=== PATIENT | female | born 1945 | race African-American/Black ===

== ENCOUNTER 2017-10-11 11:19 | Outpatient (CLI) | payer MEDICARE ==
[2017-10-11 14:09] LABS: Hemoglobin 13.1 g/dL (12.0-16.0); Mean Corpuscular HGB CONC 32.4 g/dL (32.0-36.0); Mean Corpuscular Hemoglobin 29.9 pg (27.0-31.0); Mean Corpuscular Volume 92.3 fl (81.0-99.0); Mean Platelet Volume 8.2 fL (7.4-10.4); Platelet Count 194 thou/uL (130-400); RBC Distribution Width 13.1 % (11.5-14.5); Red Blood Cell (RBC) Count 4.39 mill/uL (4.20-5.40); White Blood Cell (WBC) Count 5.2 thou/uL (4.8-10.8)
[2017-10-11 14:16] LABS: INR-International Normal Ratio 1.2; Prothrombin Time 15.5 SEC (12.0-14.7)
[2017-10-11 14:31] LABS: Anion Gap 11 mmol/L (10-20); BUN (Urea Nitrogen) 17 mg/dL (9.8-20.1); Calc. Creatinine Clearance 0 mL/min (70-130); Calcium 9.4 mg/dL (7.8-10.44); Carbon Dioxide 28 mmol/L (23-31); Chloride 106 mmol/L (98-107); Estimated GFR-MDRD 76; Glucose 215 mg/dL (83-110); Potassium 4.4 mmol/L (3.5-5.1); Sodium 141 mmol/L (136-145)
--- NOTE | 2017-10-11 16:44 | EKG ---
Test Reason : Blood Pressure : / mmHG Vent. Rate : 051 BPM Atrial Rate : 051 BPM P-R Int : 164 ms QRS Dur : 074 ms QT Int : 416 ms P-R-T Axes : 056 047 015 degrees QTc Int : 383 ms Sinus bradycardia Otherwise normal ECG No previous ECGs available Confirmed by DR. Pam VALLE ([id number]) on 10/11/2017 4:43:42 PM Referred By: M[place] Confirmed By:DR. Pam VALLE
== END 2017-10-11 11:20 | disposition home or self-care (01) ==
LOC: LABBT 11:19
PROVIDERS: ATTEND Orthopaedic Surgery
DX: Z01.818 Encounter for other preprocedural examination (principal); M17.12 Unilateral primary osteoarthritis, left knee
CPT/HCPCS: 80048; 85027; 85610; 86850; 86900; 86901; 87081; 93005; 93010

== ENCOUNTER 2017-10-17 10:55 | Inpatient (IN) | payer MEDICARE, OTHER ==
[2017-10-11 11:35] VITALS: BMI 32.0
[2017-10-17] MEDS ORDERED: Bupivacaine/Epinephrine 0.25% 30 ML VIAL ONE (11:44)
[2017-10-17] MEDS ORDERED: Bupivacaine HCl 0.5%/Epinephrine 1:200,000/PF 30 ml Vial ONE ×2 (11:44→12:44)
[2017-10-17] MEDS ORDERED: Dexamethasone 20 MG/5 ML VIAL ONE (11:57)
[2017-10-17] MEDS ORDERED: Lidocaine 1% PF 5 ML VIAL ONE (11:57)
[2017-10-17] MEDS ORDERED: PROPOFOL 200 MG/20 ML VIAL ONE (11:57)
[2017-10-17] MEDS ORDERED: Midazolam HCl 2 mg/2 ml Vial ONE (12:13)
[2017-10-17] MEDS ORDERED: Fentanyl 100 MCG/2 ML VIAL ONE ×3 (12:13→15:46)
[2017-10-17] MEDS ORDERED: Neomycin-Polymyxin 1 ML AMP ONE (12:44)
[2017-10-17] MEDS ORDERED: CEFAZOLIN/Water 2 GM/20 ML SYRINGE ONE (12:57)
[2017-10-17] MEDS ORDERED: Fentanyl 100 MCG/2 ML VIAL IV PRN (12:59)
[2017-10-17] MEDS ORDERED: Ondansetron HCl/PF 4 MG/2 ML Vial IVP PRN ×2 (12:59→15:29)
[2017-10-17] MEDS ORDERED: Zolpidem Tartrate 5 MG TAB PO PRN ×2 (12:59→15:29)
[2017-10-17] MEDS ORDERED: traMADol HCl 50 MG TAB PO PRN ×3 (12:59→15:29)
[2017-10-17] MEDS ORDERED: Promethazine HCl 25 MG/ML VIAL IM PRN ×2 (12:59→15:29)
[2017-10-17] MEDS ORDERED: Acetaminophen 325 MG TAB PO PRN (15:29)
[2017-10-17] MEDS ORDERED: HYDROcodone/Acetaminophen 10/325 mg Tablet PO PRN (15:29)
[2017-10-17] MEDS ORDERED: diphenhydrAMINE 25 MG CAP PO PRN (15:29)
--- NOTE | 2017-10-17 16:29 | RAD ---
TWO VIEWS OF THE LEFT KNEE: COMPARISON: None. HISTORY: Postop left knee arthroplasty for osteoarthritis. FINDINGS: Two views left knee show the patient to status post left knee arthroplasty without perihardware lucen cy or fracture. Air in the soft tissues and overlying skin to are from recent surgery. A vascu lar stent is seen in the distal thigh. IMPRESSION: Status post left knee arthroplasty without evidence of complication. POS: [facility]
[2017-10-17] MEDS: HYDROcodone/Acetaminophen 7.5/325 mg Tablet PO PRN (19:45)
[2017-10-17] MEDS ORDERED: MISOPROSTOL PO SCH (21:00)
[2017-10-17] MEDS ORDERED: DICLOFENAC SODIUM PO SCH (21:00)
[2017-10-17] MEDS ORDERED: Dextrose 5% in Water 1,000 ML IV PRN (21:21)
[2017-10-17] MEDS ORDERED: Insulin Regular 300 UNITS/3 ML VIAL SC PRN ×2 (21:21)
[2017-10-17] MEDS ORDERED: hydrALAZINE 20 MG/ML VIAL SLOW IVP PRN (21:21)
[2017-10-17] MEDS ORDERED: Dextrose 50% Abboject 50 ML SYRINGE SLOW IVP PRN (21:21)
--- NOTE | 2017-10-17 21:58 | OP ---
DATE OF OPERATION: 10/17/2017 OPERATION: Left total knee arthroplasty. PREOPERATIVE DIAGNOSIS: Left knee osteoarthritis. POSTOPERATIVE DIAGNOSIS: Left knee osteoarthritis. COMPLICATIONS: None. ESTIMATED BLOOD LOSS: 200 mL. SURGEON: Ariel Mayer M.D. ELECTRONIC RESOURCES LIBRARIAN: Keyla Sullivan PA-C INDICATIONS: Ms. Patel is a 72-year-old female with advanced left knee arthritis. She has valgus alignment. She has been indicated for a total knee arthroplasty to restore function, relieve pain a nd correct alignment. Risks have been reviewed in detail. Risks include infection, nerve or vascula r injury, DVT, PE, bleeding, stiffness, and others. DESCRIPTION OF PROCEDURE: Ms. Patel was identified in the preoperative holding area. Her correct extremity was marked. She was carried to the operating room. She was positioned supine. General a nesthesia was induced. A multidisciplinary timeout was performed. The left lower extremity was prep ped and draped in sterile fashion. We began the procedure with an anterior approach to the knee. We dissected down through the subcutan eous tissues to the medial retinaculum, which was incised. We exposed the underlying knee joint. Os teophytes were removed. We performed a medial release. We performed a fat pad resection as well as suprapatellar decompression. At this point, we everted the patella. We resected 9-mm of patellar kody ne using an oscillating saw. We then drilled for a 38-mm patellar button. At this point, we placed our protection sleeve. We measured and the patellar height was reconstituted. Next, we flexed the k nee. We entered the intramedullary canal of the femur. We then placed our distal femoral cutting bl ock. An 11-mm of distal femoral bone was resected. We then placed our four-in-one cutting block wit h appropriate external rotation. We cut our anterior, posterior, and chamfer cuts appropriately foll owed by our box osteotomy. At this point, we moved to the tibia. The tibia was resected using an appropriate cutting block. We removed 2-mm from the lateral tibial plateau. At this point, we thoroughly irrigated with copious l avage. We debrided the posterior aspect of the knee. We removed meniscal remnants. Next, we triale d. A 10-mm poly was a good fit with range of motion and stability. We removed our trial components. We thoroughly irrigated once more. We then cemented in our final total knee arthroplasty implants. We held the knee in full extension until fully hardened. We then placed our final polyethylene com ponent. At this point, we thoroughly irrigated once more. We then closed the wounds. We found that our patellar tendon was partially injured of approximately 30% on the medial side. We repaired this with a #5 Ethibond suture. We then repaired the capsule with #2 Vicryl suture, 2-0 Vicryl suture an d to for the skin. A sterile dressing was applied. The patient was taken to the recovery room in good condition without complication. IMPLANTS: A DePuy Sigma total knee arthroplasty, size 4 narrow femur, size 4 tibia, size 10 polyethy ronaldo and 38-mm oval dome patella.
[2017-10-17] MEDS: Furosemide 80 MG TAB PO SCH (22:09)
[2017-10-17] MEDS: Misoprostol 200 MCG TAB PO SCH (22:09)
[2017-10-17] MEDS: Gabapentin 300 MG CAP PO SCH (22:09)
[2017-10-17] MEDS: CEFAZOLIN/Water 2 GM/20 ML SYRINGE SLOW IVP SCH (22:10)
[2017-10-17] MEDS: Potassium Chloride 20 MEQ TAB PO SCH (22:16)
[2017-10-17] MEDS: Ketorolac Tromethamine 30 MG/ML VIAL IVP SCH (22:19)
[2017-10-17] MEDS: TROSPIUM 20 MG TABLET PO SCH (23:11)
--- NOTE | 2017-10-17 23:38 | CON ---
DATE OF CONSULTATION: 10/18/2017 PRIMARY CARE PHYSICIAN: Dr. Rikki Huerta. ATTENDING PHYSICIAN: Dr. Mayer. PRIMARY BURRITO MAKER: Dr. Gan. REASON FOR CONSULTATION: Medical management. HISTORY OF PRESENT ILLNESS: Patient is a 72-year-old female with hypertension, diabetes mellitus typ e 2, coronary artery disease, and peripheral vascular disease underwent left total knee arthroplasty. Hospitalist team was consulted for medical management. Patient has a long history of diabetes mellitus type 2 and is currently on empagliflozin. She is cur rently not on any insulin. She also has history of coronary artery disease. In June of this year , she underwent cardiac catheterization that showed 20%-30% stenosis in the left main 40%-50% stenosi s in the LAD and some disease in the RCA. She is currently medically managed. At the same time, she had stent placement to the left superficial femoral artery. She also has history of tobacco abuse, hypertension, and hyperlipidemia. At this time, she denies any chest pain, shortness of breath, palp itations, lightheadedness, dizziness, nausea, or vomiting. PAST MEDICAL HISTORY: 1. Coronary artery disease as discussed above. 2. Peripheral vascular disease with recent stent placement currently on aspirin and Plavix. 3. Diabetes mellitus, type 2. 4. Gastroesophageal reflux disease. 5. Hypertension. 6. Hyperlipidemia. 7. Chronic low back pain. 8. Degenerative joint disease. 9. Obesity with a BMI 32. 10. Urinary incontinence. PAST SURGICAL HISTORY: 1. . 2. Hysterectomy. 3. Foot surgery. 4. Cardiac catheterization in 1997 and in June of this year. ALLERGIES: Patient is allergic to STATINS. CURRENT HOME MEDICATIONS: Patient is currently on aspirin, Plavix, Arthrotec, digoxin, Cardizem exte nded-release, Jardiance, Lasix, gabapentin, misoprostol, multivitamin, fish oil, Protonix, potassium chloride with CK and Diovan. SOCIAL HISTORY: Patient currently lives at home with her family, makes her own decisions. She is [facility]. She has history of tobacco dependence. No significant use of alcohol. FAMILY HISTORY: Negative for premature coronary artery disease. REVIEW OF SYSTEMS: The following complete review of systems was negative, unless otherwise mentioned in the HPI or below: Constitutional: Weight loss or gain, ability to conduct usual activities. Sk in: Rash, itching. Eyes: Double vision, pain. ENT/Mouth: Nose bleeding, neck stiffness, pain, te nderness. Cardiovascular: Palpitations, dyspnea on exertion, orthopnea. Respiratory: Shortness of breath, wheezing, cough, hemoptysis, fever, or night sweats. Gastrointestinal: Poor appetite, abdo kris pain, heartburn, nausea, vomiting, constipation, or diarrhea. Genitourinary: Urgency, frequen cy, dysuria, nocturia. Musculoskeletal: Pain, swelling. Neurologic/Psychiatric: Anxiety, depressi on. Allergy/Immunologic: Skin rash, bleeding tendency. PHYSICAL EXAMINATION: VITAL SIGNS: Temperature 97.2, pulse rate of 61, respirations of 18, blood pressure 150/68 with O2 s aturation 95% on room air. GENERAL: A 72-year-old female in no significant distress. Pain controlled at this time. HEENT: Atraumatic, normocephalic. Sclerae anicteric. Moist mucous membranes. No oral lesion. NECK: Supple, no JVD appreciated. No carotid bruit. LUNGS: Clear to auscultation bilaterally. No wheezing, rales, or rhonchi. HEART: S1, S2 present. Regular rate and rhythm, bradycardic. No significant rubs or gallops apprec iated. ABDOMEN: Soft, nontender, bowel sounds present. No rebound or guarding. EXTREMITIES: No significant edema or calf tenderness. Dressing noted over the left knee. NEUROLOGIC: Grossly nonfocal, moves all four extremities. PSYCHIATRY: Alert, awake, oriented x3. Normal affect. SKIN: Warm and dry. LYMPH NODES: No palpable lymph nodes in the neck. PERIPHERAL VASCULAR: Radial pulses palpable bilaterally. MUSCULOSKELETAL: No joint swelling or tenderness. LABORATORY FINDINGS: CBC last week showed WBC 5.2 with hemoglobin 13.1, hematocrit 40.5, platelet 19 4. Chemistries showed sodium 141, potassium 4.4, chloride 106, bicarbonate 28, BUN 17, creatinine 0. 89 with glucose of 215. X-ray of the knee by my review showed left total knee arthroplasty. EKG by my review showed sinus br adycardia without significant ST-T wave changes. IMPRESSION: 1. Coronary artery disease on medical management. Antiplatelets will be continued. We will continu e valsartan and Lasix. She had a normal ejection fraction on the cardiac catheterization earlier thi s year. She denies any chest pain, palpitations at this time. 2. Peripheral vascular disease with recent stent placement to the left superficial femoral artery. We will continue aspirin and Plavix. We will avoid compression device. Patient denies any claudicat ion at this time. 3. Hypertension. We will continue her current home antihypertensives. We will add holding paramete rs to valsartan. 4. Sinus bradycardia. Patient is asymptomatic at this time. Her heart rate was in 50s on the EKG. She is currently on digoxin. She is unable to recall if she has any history of atrial fibrillation. Her ejection fraction on the cardiac catheterization was around 65%. 5. Hyperlipidemia. Patient is allergic to STATINS. 6. Obesity with a BMI 32.0. Lifestyle modification emphasized. 7. Tobacco dependence. Patient was counseled. 8. Chronic kidney disease, stage 2. 9. Degenerative joint disease. This patient is currently on diclofenac with the misoprostol. We wi ll also continue proton pump inhibitors. 10. Urinary incontinence. We will continue VESIcare. Thank you Dr. Mayer for this consultation. We will follow with you.
[2017-10-18] MEDS: Bupivacaine 0.5% 50 ML in Sodium Chloride 0.9% 50 ML NERVE BLCK SCH ×2 (04:47→17:36)
[2017-10-18] MEDS: Ketorolac Tromethamine 30 MG/ML VIAL IVP SCH ×3 (04:47→22:19)
[2017-10-18] MEDS: CEFAZOLIN/Water 2 GM/20 ML SYRINGE SLOW IVP SCH (04:48)
[2017-10-18 05:17] LABS: Hemoglobin 10.6 g/dL (12.0-16.0); Mean Corpuscular HGB CONC 32.9 g/dL (32.0-36.0); Mean Corpuscular Hemoglobin 29.9 pg (27.0-31.0); Mean Corpuscular Volume 91.1 fl (81.0-99.0); Platelet Count 182 thou/uL (130-400); RBC Distribution Width 12.9 % (11.5-14.5); Red Blood Cell (RBC) Count 3.54 mill/uL (4.20-5.40)
[2017-10-18] MEDS ORDERED: Eucerin (Mineral Oil/Petrolatum,White) 30 gm Jar TOP PRN (07:20)
[2017-10-18] MEDS ORDERED: Loperamide HCl 2 MG CAP PO PRN (07:20)
[2017-10-18] MEDS ORDERED: Artificial Tears 18 DROP/0.9 ML EA EYE PRN (07:20)
[2017-10-18] MEDS ORDERED: Diabetic Tussin 200 MG/10 ML UDCUP PO PRN (07:20)
[2017-10-18] MEDS ORDERED: Chloraseptic Spray 180 ml Bottle PO PRN (07:20)
[2017-10-18] MEDS ORDERED: Mag-Al 1200 mg/1200 mg/30 ML UDCUP PO PRN (07:20)
[2017-10-18] MEDS ORDERED: Bisacodyl 10 MG SUPP PR PRN (07:20)
[2017-10-18] MEDS ORDERED: Milk Of Magnesia 30 ML UDCUP PO PRN (07:20)
[2017-10-18] MEDS: Pioglitazone HCl 45 MG TAB PO SCH (08:18)
[2017-10-18] MEDS: Senokot S 8.6-50 MG TAB PO SCH ×2 (08:18→20:30)
[2017-10-18] MEDS: Gabapentin 300 MG CAP PO SCH ×2 (08:18→20:30)
[2017-10-18] MEDS: Valsartan 80 MG TAB PO SCH (08:19)
[2017-10-18] MEDS: Digoxin 0.125 MG TAB PO SCH (08:20)
[2017-10-18] MEDS: Misoprostol 200 MCG TAB PO SCH ×4 (08:21→20:43)
[2017-10-18] MEDS: Clopidogrel Bisulfate 75 MG TAB PO SCH (08:21)
[2017-10-18] MEDS: Ferrous Gluconate 324 MG TAB PO SCH ×2 (08:21→20:32)
[2017-10-18] MEDS: Multivitamin W/ Minerals 1 TAB PO SCH (08:21)
[2017-10-18] MEDS: Aspirin 81 mg Enteric Coated Tablet PO SCH (08:21)
[2017-10-18] MEDS: Fish Oil 1,000 MG CAP PO SCH (08:21)
[2017-10-18] MEDS: Furosemide 80 MG TAB PO SCH ×2 (08:21→20:31)
[2017-10-18] MEDS: Potassium Chloride 20 MEQ TAB PO SCH ×2 (08:30→20:30)
[2017-10-18] MEDS: TROSPIUM 20 MG TABLET PO SCH ×2 (08:30→20:44)
[2017-10-18] MEDS ORDERED: Valsartan 80 MG TAB PO SCH (09:00)
[2017-10-18] MEDS ORDERED: Empagliflozin [Jardiance] 10 MG PO SCH (09:00)
--- NOTE | 2017-10-18 09:27 | PDOC.PN ---
- Subjective Encounter Start Date: 10/18/17 Encounter Start Time: 07:40 -: old records requested/rev Patient seen and examined for HTN, CAD. No new complaints. No overnight events - Objective MAR Reviewed: Yes Vital Signs & Weight: Vital Signs (12 hours) Temp Pulse Resp BP Pulse Ox 10/18/17 08:37 98.0 F 63 15 136/56 L 97 10/18/17 08:20 68 10/18/17 03:03 98.2 F 69 18 129/68 98 10/18/17 00:14 97.7 F 77 18 151/78 H 96 10/17/17 22:21 67 156/67 H Weight Weight 223 lb I&O: 10/17/17 10/18/17 10/19/17 06:59 06:59 06:59 Intake Total 200 Output Total 700 Balance -500 Result Diagrams: 10/18/17 03:09 Additional Labs: Accuchecks 10/18/17 05:56 POC Glucose 207 H Phys Exam - Physical Examination Constitutional: NAD HEENT: PERRLA, moist MMs, sclera anicteric Neck: no JVD, supple Respiratory: no wheezing, no rales, no rhonchi Cardiovascular: RRR, no significant murmur, no rub Gastrointestinal: soft, non-tender, no distention, positive bowel sounds Musculoskeletal: no edema, pulses present left knee with brace, nerve block in place Neurological: non-focal, normal sensation, moves all 4 limbs Lymphatic: no nodes Psychiatric: normal affect, A&O x 3 Skin: no rash, normal turgor Dx/Plan (1) Status post total left knee replacement Code(s): Z96.652 - PRESENCE OF LEFT ARTIFICIAL KNEE JOINT Status: Acute (2) CAD (coronary artery disease) Code(s): I25.10 - ATHSCL HEART DISEASE OF [place] CORONARY ARTERY W/O ANG PCTRS Status: Chronic (3) CKD (chronic kidney disease) stage 2, GFR 60-89 ml/min Code(s): N18.2 - CHRONIC KIDNEY DISEASE, STAGE 2 (MILD) Status: Chronic (4) DJD (degenerative joint disease) Code(s): M19.90 - UNSPECIFIED OSTEOARTHRITIS, UNSPECIFIED SITE Status: Chronic (5) Diabetes type 2, controlled Code(s): E11.9 - TYPE 2 DIABETES MELLITUS WITHOUT COMPLICATIONS Status: Chronic (6) Dyslipidemia Code(s): E78.5 - HYPERLIPIDEMIA, UNSPECIFIED Status: Chronic (7) GERD (gastroesophageal reflux disease) Code(s): K21.9 - GASTRO-ESOPHAGEAL REFLUX DISEASE WITHOUT ESOPHAGITIS Status: Chronic (8) Hypertension Code(s): I10 - ESSENTIAL (PRIMARY) HYPERTENSION Status: Chronic (9) Obesity (BMI 30.0-34.9) Code(s): E66.9 - OBESITY, UNSPECIFIED Status: Chronic (10) PVD (peripheral vascular disease) Code(s): I73.9 - PERIPHERAL VASCULAR DISEASE, UNSPECIFIED Status: Chronic (11) Tobacco abuse Code(s): Z72.0 - TOBACCO USE Status: Chronic - Plan cont current plan of care, PT/OT, rn social services, DVT proph w/SCDs * pt is on aspirin and plavic for DVT prophylaxis as per [facility] protocol * continue PT/OT as per [facility] protocol * pain control with pain meds as below * nerve block as per anesthesia * she may need placement to rehab * code status- full code, does not have designated MPOA * medication reviewed as below * symptomatic treatment * continue protonix for GI prophylaxis. Review of Systems - Review of Systems Constitutional: negative: fever, chills, sweats, weakness, malaise, other Eyes: negative: Pain, Vision Change, Conjunctivae Inflammation, Eyelid Inflammation, Redness, Other ENT: negative: Ear Pain, Ear Discharge, Nose Pain, Nose Discharge, Nose Congestion, Mouth Pain, Mouth Swelling, Throat Pain, Throat Swelling, Other Respiratory: negative: Cough, Dry, Shortness of Breath, Hemoptysis, SOB with Excertion, Pleuritic Pain, Sputum, Wheezing Cardiovascular: negative: chest pain, palpitations, orthopnea, paroxysmal nocturnal dyspnea, edema, light headedness, other Gastrointestinal: negative: Nausea, Vomiting, Abdominal Pain, Diarrhea, Constipation, Melena, Hematochezia, Other Genitourinary: negative: Dysuria, Frequency, Incontinence, Hematuria, Retention , Other Musculoskeletal: Leg Pain. negative: Neck Pain, Shoulder Pain, Arm Pain, Back Pain, Hand Pain, Foot Pain, Other - Medications/Allergies Allergies/Adverse Reactions: Allergies Allergy/AdvReac Type Severity Reaction Status Date / Time Jfmhxge-Hkx-Vky Reductase Allergy Verified 10/17/17 19:38 Inhibitor Medications: Current Medications Acetaminophen (Tylenol) 650 mg PO Q4H PRN PRN Reason: GIMENEZ/ T > 101F; Mild Pain (1-3) Hydrocodone Bitart/Acetaminophen ([place] 7.5/325) 1 tab PO Q4H PRN PRN Reason: Mild Pain (1-3) Hydrocodone Bitart/Acetaminophen ([place] 7.5/325) 2 tab PO Q4H PRN PRN Reason: Moderate Pain (4-6) Last Admin: 10/17/17 19:45 Dose: 2 tab Al Hydroxide/Mg Hydroxide (Maalox) 15 ml PO Q4H PRN PRN Reason: Heartburn or Indigestion Artificial Tears (Tears Naturale) 0 drop EA EYE PRN PRN PRN Reason: Dry Eyes Aspirin (Ecotrin) 81 mg PO DAILY [facility] Last Admin: 10/18/17 08:21 Dose: 81 mg Bisacodyl (Dulcolax) 10 mg MI DAILYPRN PRN PRN Reason: Constipation Clopidogrel Bisulfate (Plavix) 75 mg PO DAILY [facility] Last Admin: 10/18/17 08:21 Dose: 75 mg Dextrose/Water (Dextrose 50%) 25 gm SLOW IVP PRN PRN PRN Reason: Hypoglycemia Diclofenac Sodium (Voltaren) 75 mg PO BID [facility] Last Admin: 10/18/17 08:19 Dose: 75 mg Digoxin (Lanoxin) 0.125 mg PO DAILY [facility] Last Admin: 10/18/17 08:20 Dose: 0.125 mg Diltiazem HCl (Cardizem Cd) 180 mg PO DAILY [facility] Last Admin: 10/18/17 08:20 Dose: 180 mg Diphenhydramine HCl (Benadryl) 25 mg PO Q6H PRN PRN Reason: Itching Fentanyl (Sublimaze) 50 mcg IV Q1H PRN PRN Reason: BREAKTHROUGH PAIN Ferrous Gluconate (Fergon) 324 mg PO BID [facility] Last Admin: 10/18/17 08:21 Dose: 324 mg Fish Oil (Fish Oil) 1,000 mg PO DAILY [facility] Last Admin: 10/18/17 08:21 Dose: 1,000 mg Furosemide (Lasix) 80 mg PO BID [facility] Last Admin: 10/18/17 08:21 Dose: 80 mg Gabapentin (Neurontin) 300 mg PO BID [facility] Last Admin: 10/18/17 08:18 Dose: 300 mg Glucagon (Glucagon) 1 mg IM PRN PRN PRN Reason: Hypoglycemia Guaifenesin (Robitussin Sf) 200 mg PO Q4H PRN PRN Reason: Cough Hydralazine HCl (Apresoline) 10 mg SLOW IVP Q4H PRN PRN Reason: SBP Greater Than 180 Bupivacaine HCl 50 ml/ Sodium (Chloride) 100 mls @ 0 mls/hr NERVE BLCK INF LOBO PRN Reason: As Directed Last Admin: 10/18/17 04:47 Dose: 100 mls Dextrose/Water (D5w) 1,000 mls @ 0 mls/hr IV .Q0M PRN; As Directed PRN Reason: Hypoglycemia Insulin Human Regular (Humulin R) 0 units SC .MILD SLIDING SCALE PRN PRN Reason: Mild Correctional Scale Insulin Human Regular (Humulin R) 0 units SC .BEDTIME SLIDING SC PRN PRN Reason: Bedtime Correction[place] Scale Iron/Minerals/Multivitamins (Theragran M) 1 tab PO DAILY [facility] Last Admin: 10/18/17 08:21 Dose: 1 tab Ketorolac Tromethamine (Toradol) 15 mg IVP Q8HR [facility] Stop: 10/19/17 22:01 Last Admin: 10/18/17 04:47 Dose: 15 mg Loperamide HCl (Imodium) 2 mg PO PRN PRN PRN Reason: Diarrhea/Loose Stools Magnesium Hydroxide (Milk Of Magnesium) 30 ml PO DAILYPRN PRN PRN Reason: Constipation Mineral Oil/White Petrolatum (Eucerin Cream) 0 gm TOP BIDPRN PRN PRN Reason: Dry Skin Misoprostol (Cytotec) 200 mcg PO DAILY [facility] Last Admin: 10/18/17 08:21 Dose: 200 mcg Misoprostol (Cytotec) 200 mcg PO BID [facility] Last Admin: 10/17/17 22:09 Dose: 200 mcg Multivitamins (Theragran) 1 tab PO DAILY [facility] Ondansetron HCl (Zofran) 4 mg IVP Q6H PRN PRN Reason: Nausea/Vomiting Pantoprazole Sodium (Protonix) 40 mg PO DAILY [facility] Last Admin: 10/18/17 08:21 Dose: 40 mg Empagliflozin [ (Jardiance] 10 Mg) 0 each PO DAILY [facility] Phenol (Chloraseptic [place] 180 Ml Bot) 0 ml PO PRN PRN PRN Reason: Sore Throat Pioglitazone HCl (Actos) 45 mg PO DAILY [facility] Last Admin: 10/18/17 08:18 Dose: 45 mg Potassium Chloride (K-Dur) 20 meq PO BID [facility] Last Admin: 10/17/17 22:16 Dose: 20 meq Promethazine HCl (Phenergan) 12.5 mg IM Q4H PRN PRN Reason: Nausea/Vomiting Senna/Docusate Sodium (Senokot S) 2 tab PO BID [facility] Last Admin: 10/18/17 08:18 Dose: 2 tab Sodium Chloride (Flush - Normal Saline) 10 ml IVF PRN PRN PRN Reason: Saline Flush Tramadol HCl (Ultram) 50 mg PO Q6H PRN PRN Reason: Mild Pain (1-3) Tramadol HCl (Ultram) 100 mg PO Q6H PRN PRN Reason: Moderate Pain 4-6 Trospium (Trospium) 20 mg PO BID [facility] Last Admin: 10/17/17 23:11 Dose: Not Given Valsartan (Diovan) 320 mg PO DAILY [facility] Last Admin: 10/18/17 08:19 Dose: 320 mg Zolpidem Tartrate (Ambien) 5 mg PO HSPRN PRN PRN Reason: Insomnia
[2017-10-18] MEDS: Multivit, Therapeutic 1 TAB PO SCH (11:27)
[2017-10-18] MEDS ORDERED: Insulin Regular 300 UNITS/3 ML VIAL SC PRN (11:58)
[2017-10-18] MEDS: HYDROcodone/Acetaminophen 7.5/325 mg Tablet PO PRN ×2 (17:43→19:41)
[2017-10-18] MEDS: Insulin Regular 300 UNITS/3 ML VIAL SC PRN (22:29)
[2017-10-19] MEDS: Ketorolac Tromethamine 30 MG/ML VIAL IVP SCH ×3 (05:09→20:55)
[2017-10-19 05:52] LABS: Hemoglobin 9.7 g/dL (12.0-16.0); Mean Corpuscular HGB CONC 32.6 g/dL (32.0-36.0); Mean Corpuscular Hemoglobin 29.9 pg (27.0-31.0); Mean Corpuscular Volume 91.7 fl (81.0-99.0); Mean Platelet Volume 7.8 fL (7.4-10.4); Platelet Count 155 thou/uL (130-400); RBC Distribution Width 12.9 % (11.5-14.5); Red Blood Cell (RBC) Count 3.24 mill/uL (4.20-5.40)
[2017-10-19] MEDS: Bupivacaine 0.5% 50 ML in Sodium Chloride 0.9% 50 ML NERVE BLCK SCH ×2 (07:09→20:25)
[2017-10-19] MEDS: Valsartan 80 MG TAB PO SCH (08:23)
[2017-10-19] MEDS: Pioglitazone HCl 45 MG TAB PO SCH (08:24)
[2017-10-19] MEDS: Aspirin 81 mg Enteric Coated Tablet PO SCH (08:25)
[2017-10-19] MEDS: Fish Oil 1,000 MG CAP PO SCH (08:25)
[2017-10-19] MEDS: Potassium Chloride 20 MEQ TAB PO SCH ×2 (08:25→20:49)
[2017-10-19] MEDS: Gabapentin 300 MG CAP PO SCH ×2 (08:25→20:48)
[2017-10-19] MEDS: Ferrous Gluconate 324 MG TAB PO SCH ×2 (08:25→20:48)
[2017-10-19] MEDS: Clopidogrel Bisulfate 75 MG TAB PO SCH (08:25)
[2017-10-19] MEDS: Senokot S 8.6-50 MG TAB PO SCH ×2 (08:25→20:49)
[2017-10-19] MEDS: Furosemide 80 MG TAB PO SCH ×2 (08:25→21:12)
[2017-10-19] MEDS: Multivitamin W/ Minerals 1 TAB PO SCH (08:26)
[2017-10-19] MEDS: Digoxin 0.125 MG TAB PO SCH (08:26)
[2017-10-19] MEDS: Misoprostol 200 MCG TAB PO SCH ×4 (08:26→21:12)
--- NOTE | 2017-10-19 10:09 | PDOC.PN ---
- Subjective Encounter Start Date: 10/19/17 Encounter Start Time: 08:00 Patient seen and examined for medical management. No new complaints. No overnight events - Objective Resuscitation Status: Resuscitation Status FULL:Full Resuscitation MAR Reviewed: Yes Vital Signs & Weight: Vital Signs (12 hours) Temp Pulse Resp BP BP Pulse Ox 10/19/17 08:26 55 L 10/19/17 08:07 97.5 F L 58 L 14 118/86 97 10/19/17 03:08 98.3 F 62 18 134/56 L 97 10/19/17 00:00 98.5 F 68 14 95/52 L 96 Weight Admit Weight 223 lb Weight 223 lb I&O: 10/18/17 10/19/17 10/20/17 06:59 06:59 06:59 Intake Total 200 Output Total 700 2000 Result Diagrams: 10/19/17 05:37 Additional Labs: Accuchecks 10/19/17 10/18/17 10/18/17 05:41 22:20 15:46 POC Glucose 173 H 300 H 164 H 10/18/17 11:14 POC Glucose 371 H Phys Exam - Physical Examination Constitutional: NAD HEENT: PERRLA, moist MMs, sclera anicteric Neck: no JVD, supple Respiratory: no wheezing, no rales, no rhonchi Cardiovascular: RRR, no significant murmur, no rub Gastrointestinal: soft, non-tender, no distention, positive bowel sounds Musculoskeletal: no edema, pulses present left knee surgical site clean Neurological: non-focal, normal sensation, moves all 4 limbs Psychiatric: normal affect, A&O x 3 Skin: no rash, normal turgor Dx/Plan (1) Status post total left knee replacement Code(s): Z96.652 - PRESENCE OF LEFT ARTIFICIAL KNEE JOINT Status: Acute (2) CAD (coronary artery disease) Code(s): I25.10 - ATHSCL HEART DISEASE OF [place] CORONARY ARTERY W/O ANG PCTRS Status: Chronic (3) CKD (chronic kidney disease) stage 2, GFR 60-89 ml/min Code(s): N18.2 - CHRONIC KIDNEY DISEASE, STAGE 2 (MILD) Status: Chronic (4) DJD (degenerative joint disease) Code(s): M19.90 - UNSPECIFIED OSTEOARTHRITIS, UNSPECIFIED SITE Status: Chronic (5) Diabetes type 2, controlled Code(s): E11.9 - TYPE 2 DIABETES MELLITUS WITHOUT COMPLICATIONS Status: Chronic (6) Dyslipidemia Code(s): E78.5 - HYPERLIPIDEMIA, UNSPECIFIED Status: Chronic (7) GERD (gastroesophageal reflux disease) Code(s): K21.9 - GASTRO-ESOPHAGEAL REFLUX DISEASE WITHOUT ESOPHAGITIS Status: Chronic (8) Hypertension Code(s): I10 - ESSENTIAL (PRIMARY) HYPERTENSION Status: Chronic (9) Obesity (BMI 30.0-34.9) Code(s): E66.9 - OBESITY, UNSPECIFIED Status: Chronic (10) PVD (peripheral vascular disease) Code(s): I73.9 - PERIPHERAL VASCULAR DISEASE, UNSPECIFIED Status: Chronic (11) Tobacco abuse Code(s): Z72.0 - TOBACCO USE Status: Chronic - Plan cont current plan of care, PT/OT, social worker psychiatric * pt is on aspirin and plavic for DVT prophylaxis as per JU protocol * continue PT/OT as per JU protocol * pain control with pain meds as below * nerve block as per anesthesia * she may need placement to rehab * medication reviewed as below * symptomatic treatment * continue protonix for GI prophylaxis. * pt's blood sugar was high as she was not able to take her home medication, today will resume her diabetic medication Review of Systems - Review of Systems Eyes: negative: Pain, Vision Change, Conjunctivae Inflammation, Eyelid Inflammation, Redness, Other ENT: negative: Ear Pain, Ear Discharge, Nose Pain, Nose Discharge, Nose Congestion, Mouth Pain, Mouth Swelling, Throat Pain, Throat Swelling, Other Respiratory: negative: Cough, Dry, Shortness of Breath, Hemoptysis, SOB with Excertion, Pleuritic Pain, Sputum, Wheezing Cardiovascular: negative: chest pain, palpitations, orthopnea, paroxysmal nocturnal dyspnea, edema, light headedness, other Gastrointestinal: negative: Nausea, Vomiting, Abdominal Pain, Diarrhea, Constipation, Melena, Hematochezia, Other Genitourinary: negative: Dysuria, Frequency, Incontinence, Hematuria, Retention , Other Musculoskeletal: negative: Neck Pain, Shoulder Pain, Arm Pain, Back Pain, Hand Pain, Leg Pain, Foot Pain, Other Skin: negative: Rash, Lesions, Miguel Angel, Bruising, Other - Medications/Allergies Allergies/Adverse Reactions: Allergies Allergy/AdvReac Type Severity Reaction Status Date / Time [id number]-[id number]-[id number] Reductase Allergy Verified 10/17/17 19:38 Inhibitor Medications: Current Medications Acetaminophen (Tylenol) 650 mg PO Q4H PRN PRN Reason: GIMENEZ/ T > 101F; Mild Pain (1-3) Hydrocodone Bitart/Acetaminophen ([place] 7.5/325) 1 tab PO Q4H PRN PRN Reason: Mild Pain (1-3) Last Admin: 10/18/17 17:43 Dose: 1 tab Hydrocodone Bitart/Acetaminophen ([place] 7.5/325) 2 tab PO Q4H PRN PRN Reason: Moderate Pain (4-6) Last Admin: 10/18/17 19:41 Dose: 2 tab Al Hydroxide/Mg Hydroxide (Maalox) 15 ml PO Q4H PRN PRN Reason: Heartburn or Indigestion Artificial Tears (Tears Naturale) 0 drop EA EYE PRN PRN PRN Reason: Dry Eyes Aspirin (Ecotrin) 81 mg PO DAILY [facility] Last Admin: 10/19/17 08:25 Dose: 81 mg Bisacodyl (Dulcolax) 10 mg [place] DAILYPRN PRN PRN Reason: Constipation Clopidogrel Bisulfate (Plavix) 75 mg PO DAILY [facility] Last Admin: 10/19/17 08:25 Dose: 75 mg Dextrose/Water (Dextrose 50%) 25 gm SLOW IVP PRN PRN PRN Reason: Hypoglycemia Diclofenac Sodium (Voltaren) 75 mg PO BID [facility] Last Admin: 10/19/17 08:24 Dose: 75 mg Digoxin (Lanoxin) 0.125 mg PO DAILY [facility] Last Admin: 10/19/17 08:26 Dose: Not Given Diltiazem HCl (Cardizem Cd) 180 mg PO DAILY [facility] Last Admin: 10/19/17 08:23 Dose: 180 mg Diphenhydramine HCl (Benadryl) 25 mg PO Q6H PRN PRN Reason: Itching Fentanyl (Sublimaze) 50 mcg IV Q1H PRN PRN Reason: BREAKTHROUGH PAIN Ferrous Gluconate (Fergon) 324 mg PO BID [facility] Last Admin: 10/19/17 08:25 Dose: 324 mg Fish Oil (Fish Oil) 1,000 mg PO DAILY [facility] Last Admin: 10/19/17 08:25 Dose: 1,000 mg Furosemide (Lasix) 80 mg PO BID [facility] Last Admin: 10/19/17 08:25 Dose: 80 mg Gabapentin (Neurontin) 300 mg PO BID [facility] Last Admin: 10/19/17 08:25 Dose: 300 mg Glucagon (Glucagon) 1 mg IM PRN PRN PRN Reason: Hypoglycemia Guaifenesin (Robitussin Sf) 200 mg PO Q4H PRN PRN Reason: Cough Hydralazine HCl (Apresoline) 10 mg SLOW IVP Q4H PRN PRN Reason: SBP Greater Than 180 Bupivacaine HCl 50 ml/ Sodium (Chloride) 100 mls @ 0 mls/hr NERVE BLCK INF [facility] PRN Reason: As Directed Last Admin: 10/19/17 07:09 Dose: 100 mls Dextrose/Water (D5w) 1,000 mls @ 0 mls/hr IV .Q0M PRN; As Directed PRN Reason: Hypoglycemia Insulin Human Regular (Humulin R) 0 units SC .MODERATE SLIDING SC PRN PRN Reason: Moderate Correctional Scale Insulin Human Regular (Humulin R) 0 units SC .BEDTIME SLIDING SC PRN PRN Reason: Bedtime Correctional Scale Last Admin: 10/18/17 22:29 Dose: 3 unit Iron/Minerals/Multivitamins (Theragran M) 1 tab PO DAILY [facility] Last Admin: 10/19/17 08:26 Dose: 1 tab Ketorolac Tromethamine (Toradol) 15 mg IVP Q8HR [facility] Stop: 10/19/17 22:01 Last Admin: 10/19/17 05:09 Dose: 15 mg Loperamide HCl (Imodium) 2 mg PO PRN PRN PRN Reason: Diarrhea/Loose Stools Magnesium Hydroxide (Milk Of Magnesium) 30 ml PO DAILYPRN PRN PRN Reason: Constipation Mineral Oil/White Petrolatum (Eucerin Cream) 0 gm TOP BIDPRN PRN PRN Reason: Dry Skin Misoprostol (Cytotec) 200 mcg PO DAILY [facility] Last Admin: 10/19/17 08:26 Dose: 200 mcg Misoprostol (Cytotec) 200 mcg PO BID [facility] Last Admin: 10/19/17 08:28 Dose: 200 mcg Multivitamins (Theragran) 1 tab PO DAILY [facility] Last Admin: 10/18/17 11:27 Dose: Not Given Ondansetron HCl (Zofran) 4 mg IVP Q6H PRN PRN Reason: Nausea/Vomiting Pantoprazole Sodium (Protonix) 40 mg PO DAILY [facility] Last Admin: 10/19/17 08:25 Dose: 40 mg Empagliflozin [ (Jardiance] 10 Mg) 0 each PO DAILY [facility] Phenol (Chloraseptic [place] 180 Ml Bot) 0 ml PO PRN PRN PRN Reason: Sore Throat Pioglitazone HCl (Actos) 45 mg PO DAILY [facility] Last Admin: 10/19/17 08:24 Dose: 45 mg Potassium Chloride (K-Dur) 20 meq PO BID [facility] Last Admin: 10/19/17 08:25 Dose: 20 meq Promethazine HCl (Phenergan) 12.5 mg IM Q4H PRN PRN Reason: Nausea/Vomiting Senna/Docusate Sodium (Senokot S) 2 tab PO BID [facility] Last Admin: 10/19/17 08:25 Dose: 2 tab Sodium Chloride (Flush - Normal Saline) 10 ml IVF PRN PRN PRN Reason: Saline Flush Tramadol HCl (Ultram) 50 mg PO Q6H PRN PRN Reason: Mild Pain (1-3) Tramadol HCl (Ultram) 100 mg PO Q6H PRN PRN Reason: Moderate Pain 4-6 Trospium (Trospium) 20 mg PO BID [facility] Last Admin: 10/18/17 20:44 Dose: 20 mg Valsartan (Diovan) 320 mg PO DAILY [facility] Last Admin: 10/19/17 08:23 Dose: 320 mg Zolpidem Tartrate (Ambien) 5 mg PO HSPRN PRN PRN Reason: Insomnia
[2017-10-19] MEDS: TROSPIUM 20 MG TABLET PO SCH ×2 (14:58→21:05)
[2017-10-19] MEDS: Multivit, Therapeutic 1 TAB PO SCH (14:58)
[2017-10-19] MEDS: HYDROcodone/Acetaminophen 7.5/325 mg Tablet PO PRN (17:22)
[2017-10-19] MEDS: Insulin Regular 300 UNITS/3 ML VIAL SC PRN (20:59)
[2017-10-20 05:58] LABS: Hemoglobin 8.3 g/dL (12.0-16.0); Mean Corpuscular HGB CONC 32.9 g/dL (32.0-36.0); Mean Corpuscular Hemoglobin 30.1 pg (27.0-31.0); Mean Corpuscular Volume 91.7 fl (81.0-99.0); Mean Platelet Volume 8.1 fL (7.4-10.4); Platelet Count 138 thou/uL (130-400); Red Blood Cell (RBC) Count 2.76 mill/uL (4.20-5.40); White Blood Cell (WBC) Count 8.3 thou/uL (4.8-10.8)
[2017-10-20] MEDS: Clopidogrel Bisulfate 75 MG TAB PO SCH (08:08)
[2017-10-20] MEDS: Pioglitazone HCl 45 MG TAB PO SCH (08:09)
[2017-10-20] MEDS: Valsartan 80 MG TAB PO SCH (08:09)
[2017-10-20] MEDS: Senokot S 8.6-50 MG TAB PO SCH (08:09)
[2017-10-20] MEDS: Digoxin 0.125 MG TAB PO SCH (08:10)
[2017-10-20] MEDS: Fish Oil 1,000 MG CAP PO SCH (08:10)
[2017-10-20] MEDS: Multivitamin W/ Minerals 1 TAB PO SCH (08:10)
[2017-10-20] MEDS: Aspirin 81 mg Enteric Coated Tablet PO SCH (08:10)
[2017-10-20] MEDS: Gabapentin 300 MG CAP PO SCH (08:10)
[2017-10-20] MEDS: Multivit, Therapeutic 1 TAB PO SCH (08:10)
[2017-10-20] MEDS: Potassium Chloride 20 MEQ TAB PO SCH (08:10)
[2017-10-20] MEDS: Ferrous Gluconate 324 MG TAB PO SCH (08:10)
[2017-10-20] MEDS: Furosemide 80 MG TAB PO SCH (08:10)
[2017-10-20] MEDS: Misoprostol 200 MCG TAB PO SCH (08:11)
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
--- NOTE | 2017-10-20 11:36 | DIS ---
DATE OF ADMISSION: 10/17/2017 DATE OF DISCHARGE: 10/20/2017 PRIMARY CARE PHYSICIAN: Rikki Huerta M.D. DISCHARGE DISPOSITION: [facility]. PRIMARY DISCHARGE DIAGNOSIS: Status post left total knee replacement. SECONDARY DISCHARGE DIAGNOSES: Coronary artery disease, chronic kidney disease stage 3, diabetes typ e 2, degenerative joint disease, dyslipidemia, gastroesophageal reflux disease, hypertension, obesity with body mass index 32, peripheral vascular disease, tobacco abuse disorder. PRIMARY PROCEDURE/OPERATION: Left total knee replacement by Dr. Mayer. RADIOLOGICAL INVESTIGATION: Knee x-ray. SIGNIFICANT LABORATORY DATA: WBC 8.3, hemoglobin 8.3, platelet 138. DISCHARGE MEDICATIONS: Aspirin 81 mg p.o. daily, Plavix 75 mg p.o. daily, diclofenac with misoprosto l one tablet p.o. b.i.d., digoxin 125 mcg p.o. daily, Cardizem-CD 180 mg p.o. daily, empagliflozin 10 mg p.o. daily, Lasix 80 mg p.o. daily, gabapentin 300 mg p.o. b.i.d., misoprostol 200 mcg p.o. b.i.d ., multivitamin 1 tablet p.o. daily, fish oil 500 mg p.o. daily, Protonix 40 mg p.o. daily, potassium chloride 20 mEq p.o. b.i.d., VESIcare 10 mg p.o. daily, and Diovan 320 mg p.o. daily. CONTRAINDICATIONS: None. CODE STATUS: FULL CODE. INPATIENT CONSULTANTS: Dr. Mayer was primary while in hospital. Erin team was consulted for me dical management. TEST RESULTS PENDING ON DISCHARGE: None. ALLERGIES: STATIN DRUGS. DISCHARGE PLAN: Post hospital, the patient is planned for discharge to [facility] bed. The patient will follow up with primary care physician and Dr. Mayer as instructed. HOSPITAL COURSE: A 72-year-old female with above-mentioned medical problem who was electively admitt ed by Dr. Ariel Mayer for left total knee replacement which was done on 10/17/2017 without any immediate complication. Postoperatively, at [facility], Erin team was consulted for medic al comanagement. Please see Dr. Duffy's consult note for further detail. While in hospital, the pat ient was given nerve block for pain control. She had aspirin and Plavix for DVT prophylaxis. Her ho me medication was continued while in hospital. She remained hemodynamically stable. She did relativ angelica well with physical therapy while in hospital. She was needing rehabilitation placement and that is why with help of trimming caser, [facility] is arranged for more PT, OT. The patient will be planned for discharge later on today to [facility] once arranged. Primary team cleared her for discharge. The patient is seen and examined at bedside today. REVIEW OF SYSTEMS: Reviewed with her and negative. PHYSICAL EXAMINATION: VITAL SIGNS: Currently, temperature 98.3, pulse 72, respiratory rate 16, saturation 98% on room air, blood pressure 143/53, weight 223 pounds. GENERAL: The patient is currently alert, awake, no obvious acute distress. HEAD: Normocephalic, atraumatic. EYES: Pupils round, reactive to light. Extraocular muscle intact. ENT: Oropharynx within normal limits. Moist mucous membranes, no oral lesion, no pharyngeal erythem a, no exudate. NECK: Supple, no JVD, no thyromegaly, no carotid bruit. LUNGS: Clear to auscultation without any rhonchi or rales. CARDIAC: S1, S2 regular without any significant murmur. ABDOMEN: Soft and benign without any tenderness. EXTREMITIES: No edema. NEUROLOGIC: Nonfocal examination. Paper work of discharge done by primary team. The patient is planned for discharge later on today an d we will sign off.
[2017-10-20 12:04] VITALS: TEMP 98.1
[2017-10-20 12:11] VITALS: BP 143/53
[2017-10-20] MEDS: HYDROcodone/Acetaminophen 7.5/325 mg Tablet PO PRN (12:11)
== END 2017-10-20 13:00 | disposition home or self-care (01) | DRG 470 ==
LOC: SDC 10:55 → SJJU 16:43
PROVIDERS: ADMIT Orthopaedic Surgery; ATTEND Orthopaedic Surgery
PROC: 0SRD0J9 Replacement of Left Knee Joint with Synthetic Substitute, Cemented, Open Approach (ICD-10-PCS; principal; 2017-10-17)
DX: M17.12 Unilateral primary osteoarthritis, left knee (principal); I25.10 Atherosclerotic heart disease of native coronary artery without angina pectoris; N18.3 Chronic kidney disease, stage 3 (moderate); E11.22 Type 2 diabetes mellitus with diabetic chronic kidney disease; E78.5 Hyperlipidemia, unspecified; K21.9 Gastro-esophageal reflux disease without esophagitis; I12.9 Hypertensive chronic kidney disease with stage 1 through stage 4 chronic kidney disease, or unspecified chronic kidney disease; E66.9 Obesity, unspecified; Z68.32 Body mass index [BMI] 32.0-32.9, adult; I73.9 Peripheral vascular disease, unspecified; Z79.82 Long term (current) use of aspirin; Z79.02 Long term (current) use of antithrombotics/antiplatelets; Z88.8 Allergy status to other drugs, medicaments and biological substances; G89.29 Other chronic pain; M54.9 Dorsalgia, unspecified; R32 Unspecified urinary incontinence; F17.210 Nicotine dependence, cigarettes, uncomplicated; Z95.828 Presence of other vascular implants and grafts; Z86.718 Personal history of other venous thrombosis and embolism
CPT/HCPCS: 36415; 36416; 76000; 85027; C1713; C1776; G8978-GP-CL; G8979-GP-CJ; G8987-GO-CJ; G8988-GO-CI; J0670; J1100; J1815; J1885; J2001; J2250; J2704; J3010; J3490; J7050

== ENCOUNTER 2022-09-09 09:54 | Outpatient (CLI) | payer MEDICARE ==
[2022-09-09 11:00] LABS: Hemoglobin 13.3 g/dL (12.0-15.5); Mean Corpuscular HGB CONC 32.4 g/dL (32.0-36.0); Mean Corpuscular Hemoglobin 28.9 pg (27.0-33.0); Mean Corpuscular Volume 89.3 fl (81.6-98.3); Mean Platelet Volume 10.1 fl (7.4-10.4); Platelet Count 234 10x3/uL (150-450); RBC Distribution Width 14.4 % (11.5-14.5); White Blood Cell (WBC) Count 4.9 10x3/uL (3.5-10.5)
[2022-09-09 11:16] LABS: PTT 26.8 sec (22.0-33.0); Prothrombin Time 10.8 sec (9.5-12.1)
[2022-09-09 11:40] LABS: Anion Gap 13 mmol/L (10-20); BUN (Urea Nitrogen) 16 mg/dL (9.8-20.1); Calc. Creatinine Clearance 0 mL/min (70-130); Calcium 9.1 mg/dL (7.8-10.44); Carbon Dioxide 25 mmol/L (23-31); Chloride 107 mmol/L (98-107); Estimated GFR 85; Glucose 96 mg/dL (83-110); Sodium 141 mmol/L (136-145)
== END 2022-09-09 09:55 | disposition home or self-care (01) ==
LOC: LABBT 09:54
PROVIDERS: ATTEND Surgery
DX: Z01.818 Encounter for other preprocedural examination (principal); M54.16 Radiculopathy, lumbar region; M48.062 Spinal stenosis, lumbar region with neurogenic claudication
CPT/HCPCS: 80048; 85027; 85610; 85730; 93005; 93010

== ENCOUNTER 2023-03-28 09:17 | Outpatient (CLI) | payer MEDICARE ==
[2023-03-28 10:27] LABS: Hematocrit 43.2 % (34.9-44.5); Mean Corpuscular HGB CONC 32.4 g/dL (32.0-36.0); Mean Corpuscular Hemoglobin 28.9 pg (27.0-33.0); Mean Corpuscular Volume 89.3 fl (81.6-98.3); Mean Platelet Volume 9.5 fl (7.4-10.4); Platelet Count 273 10x3/uL (150-450); RBC Distribution Width 14.4 % (11.5-14.5); Red Blood Cell (RBC) Count 4.84 10x6/uL (3.90-5.03); White Blood Cell (WBC) Count 5.3 10x3/uL (3.5-10.5)
[2023-03-28 10:48] LABS: PTT 28.9 sec (22.0-33.0)
[2023-03-28 10:55] LABS: Anion Gap 13 mmol/L (10-20); BUN (Urea Nitrogen) 14 mg/dL (9.8-20.1); Calc. Creatinine Clearance 0 mL/min (70-130); Calcium 9.7 mg/dL (7.8-10.44); Carbon Dioxide 27 mmol/L (23-31); Chloride 105 mmol/L (98-107); Estimated GFR 75; Glucose 104 mg/dL (83-110); Potassium 4.1 mmol/L (3.5-5.1); Sodium 141 mmol/L (136-145)
== END 2023-03-28 09:18 | disposition home or self-care (01) ==
LOC: LABBT 09:17
PROVIDERS: ATTEND Surgery
DX: Z01.818 Encounter for other preprocedural examination (principal); M48.062 Spinal stenosis, lumbar region with neurogenic claudication; M54.16 Radiculopathy, lumbar region
CPT/HCPCS: 80048; 85027; 85610; 85730; 93005; 93010

== ENCOUNTER 2023-03-31 07:18 | Inpatient (IN) | payer MEDICARE ==
[2023-03-31] MEDS ORDERED: fentaNYL 50 mcg/mL 1 mL Vial ONE ×5 (09:18→16:57)
[2023-03-31] MEDS ORDERED: Phenylephrine 10 MG/ML VIAL ONE (10:08)
[2023-03-31] MEDS ORDERED: Thrombin 5000 UNITS/5 ML VIAL ONE (10:09)
[2023-03-31] MEDS ORDERED: Vancomycin 1 GM VIAL ONE (10:09)
[2023-03-31] MEDS ORDERED: Sodium Chloride 0.9% 100 ML ONE ×2 (10:21→14:36)
[2023-03-31] MEDS ORDERED: CEFAZOLIN 2 GM VIAL ONE ×2 (10:21→14:36)
[2023-03-31] MEDS ORDERED: Ondansetron PF 4 MG/2 ML Vial ONE (10:30)
[2023-03-31] MEDS ORDERED: Lidocaine 1% PF 5 ML VIAL ONE (10:30)
[2023-03-31] MEDS ORDERED: PROPOFOL 200 MG/20 ML VIAL ONE (10:30)
[2023-03-31] MEDS ORDERED: Dexamethasone 20 MG/5 ML VIAL ONE (10:30)
[2023-03-31] MEDS ORDERED: PHENYLEPHRINE-NS 100 MCG/ML 10 ML SYRINGE ONE (10:30)
[2023-03-31] MEDS ORDERED: Rocuronium Bromide 10 MG/ML (10ML VIAL) ONE (10:30)
[2023-03-31] MEDS ORDERED: SUGAMMADEX SODIUM 200 MG/2 ML VIAL ONE (12:09)
[2023-03-31] MEDS ORDERED: Promethazine HCl 25 MG/ML VIAL IM PRN (13:13)
[2023-03-31] MEDS ORDERED: Ondansetron HCl/PF 4 MG/2 ML Vial IVP PRN (13:13)
[2023-03-31] MEDS ORDERED: Acetaminophen 325 MG TAB PO PRN (14:06)
[2023-03-31] MEDS ORDERED: diphenhydrAMINE 25 MG CAP PO PRN (14:06)
[2023-03-31] MEDS ORDERED: traMADol HCl 50 MG TAB PO PRN (14:06)
[2023-03-31] MEDS ORDERED: Bisacodyl 10 MG SUPP PR PRN (14:06)
[2023-03-31] MEDS ORDERED: Morphine 2 MG/ML VIAL SLOW IVP PRN (14:06)
[2023-03-31] MEDS ORDERED: Promethazine HCl 12.5 MG in Sodium Chloride 0.9% 50 ML IVPB PRN (14:08)
[2023-03-31] MEDS ORDERED: hydrALAZINE 20 MG/ML VIAL SLOW IVP PRN (14:09)
[2023-03-31] MEDS ORDERED: tiZANidine HCl 4 MG TAB PO PRN (14:09)
[2023-03-31] MEDS ORDERED: Gabapentin 300 MG CAP PO SCH (14:15)
[2023-03-31] MEDS ORDERED: Fluconazole 100 MG TAB PO PRN (15:42)
[2023-03-31] MEDS ORDERED: Gabapentin 300 MG CAP ONE (16:49)
[2023-03-31] MEDS ORDERED: CEFAZOLIN 2 GM in Sodium Chloride 0.9% 100 ML IVPB SCH (18:00)
[2023-03-31] MEDS: metFORMIN XR 500 MG ER.TAB PO SCH (18:12)
[2023-03-31] MEDS: Sodium Chloride 0.9% 1,000 ML IV SCH (18:13)
[2023-03-31 18:21] VITALS: BMI 25.0
[2023-03-31] MEDS: HYDROcodone/Acetaminophen 7.5/325 mg Tablet PO PRN (21:16)
[2023-03-31] MEDS: Losartan 25 MG TAB PO SCH (21:17)
[2023-03-31] MEDS: Gabapentin 300 MG CAP PO SCH (21:18)
[2023-03-31] MEDS: Sucralfate 1 GM TAB PO SCH (21:18)
[2023-03-31] MEDS: CEFAZOLIN 2 GM in Sodium Chloride 0.9% 100 ML IVPB SCH (21:19)
[2023-04-01] MEDS: Sodium Chloride 0.9% 1,000 ML IV SCH ×2 (05:08→16:50)
[2023-04-01] MEDS: CEFAZOLIN 2 GM in Sodium Chloride 0.9% 100 ML IVPB SCH ×3 (05:08→22:25)
[2023-04-01 05:33] LABS: #Monocytes 0.8 thou/uL (0.11-0.59); #Neutrophils 7.1 thou/uL (1.40-6.50); %Basophils 0.3 % (0.0-1.0); %Lymphocytes 13.6 % (21.0-51.0); %Monocytes 8.6 % (0.0-10.0); %Neutrophils 77.3 % (42.0-75.0); Hematocrit 35.3 % (36.0-47.0); Hemoglobin 11.3 g/dL (12.0-16.0); Mean Corpuscular Hemoglobin 29.2 pg (27.0-31.0); Mean Corpuscular Volume 91.2 fl (78.0-98.0); Mean Platelet Volume 10.4 fL (7.4-10.4); Platelet Count 243 10x3/uL (130-400); RBC Distribution Width 14.8 % (11.5-14.5); Red Blood Cell (RBC) Count 3.87 mill/uL (4.20-5.40); White Blood Cell (WBC) Count 9.2 10x3/uL (4.8-10.8)
[2023-04-01 05:55] LABS: Anion Gap 10 mmol/L (10-20); BUN (Urea Nitrogen) 14 mg/dL (9.8-20.1); Calc. Creatinine Clearance 81 mL/min (70-130); Calcium 8.8 mg/dL (7.8-10.44); Carbon Dioxide 26 mmol/L (23-31); Chloride 111 mmol/L (98-107); Estimated GFR 85; Glucose 121 mg/dL (83-110); Potassium 4.2 mmol/L (3.5-5.1); Sodium 143 mmol/L (136-145)
[2023-04-01] MEDS: Multivit, Therapeutic 1 TAB PO SCH (08:58)
[2023-04-01] MEDS: Furosemide 40 MG TAB PO SCH (08:58)
[2023-04-01] MEDS: metFORMIN XR 500 MG ER.TAB PO SCH ×2 (08:58→18:32)
[2023-04-01] MEDS: Empagliflozin 25 MG TAB PO SCH (08:58)
[2023-04-01] MEDS: Gabapentin 300 MG CAP PO SCH ×2 (08:58→22:25)
[2023-04-01] MEDS: Ascorbic Acid 500 mg Chewable Tablet PO SCH (08:58)
[2023-04-01] MEDS: dilTIAZem CD 180 MG CAP PO SCH (08:58)
[2023-04-01] MEDS: Sucralfate 1 GM TAB PO SCH ×2 (08:58→22:25)
[2023-04-01] MEDS: Losartan 25 MG TAB PO SCH ×2 (08:58→22:24)
[2023-04-01] MEDS: HYDROcodone/Acetaminophen 7.5/325 mg Tablet PO PRN ×2 (08:59→18:32)
[2023-04-01] MEDS ORDERED: Tumeric/Ging/Olive/Oreg/Capryl [Candicidal Capsule] PO SCH (09:00)
[2023-04-02] MEDS: CEFAZOLIN 2 GM in Sodium Chloride 0.9% 100 ML IVPB SCH ×3 (05:50→21:45)
[2023-04-02] MEDS: Sodium Chloride 0.9% 1,000 ML IV SCH ×2 (06:18→21:46)
[2023-04-02] MEDS: dilTIAZem CD 180 MG CAP PO SCH (08:20)
[2023-04-02] MEDS: metFORMIN XR 500 MG ER.TAB PO SCH ×2 (08:20→16:59)
[2023-04-02] MEDS: Losartan 25 MG TAB PO SCH ×2 (08:20→21:45)
[2023-04-02] MEDS: Gabapentin 300 MG CAP PO SCH ×2 (08:20→21:45)
[2023-04-02] MEDS: Furosemide 40 MG TAB PO SCH (08:20)
[2023-04-02] MEDS: Ascorbic Acid 500 mg Chewable Tablet PO SCH (08:21)
[2023-04-02] MEDS: Empagliflozin 25 MG TAB PO SCH (08:21)
[2023-04-02] MEDS: Multivit, Therapeutic 1 TAB PO SCH (08:21)
[2023-04-02] MEDS: HYDROcodone/Acetaminophen 7.5/325 mg Tablet PO PRN (08:29)
[2023-04-02] MEDS: Sucralfate 1 GM TAB PO SCH ×2 (11:24→21:45)
[2023-04-03] MEDS: CEFAZOLIN 2 GM in Sodium Chloride 0.9% 100 ML IVPB SCH (06:30)
[2023-04-03] MEDS: Furosemide 40 MG TAB PO SCH (09:27)
[2023-04-03] MEDS: Empagliflozin 25 MG TAB PO SCH (09:27)
[2023-04-03] MEDS: Ascorbic Acid 500 mg Chewable Tablet PO SCH (09:27)
[2023-04-03] MEDS: metFORMIN XR 500 MG ER.TAB PO SCH ×2 (09:27→18:41)
[2023-04-03] MEDS: Sucralfate 1 GM TAB PO SCH ×2 (09:27→20:37)
[2023-04-03] MEDS: dilTIAZem CD 180 MG CAP PO SCH (09:27)
[2023-04-03] MEDS: Gabapentin 300 MG CAP PO SCH ×2 (09:27→20:36)
[2023-04-03] MEDS: Multivit, Therapeutic 1 TAB PO SCH (09:27)
[2023-04-03] MEDS: Losartan 25 MG TAB PO SCH ×2 (09:28→20:37)
[2023-04-03] MEDS: HYDROcodone/Acetaminophen 7.5/325 mg Tablet PO PRN (09:32)
[2023-04-03] MEDS: Sodium Chloride 0.9% 1,000 ML IV SCH (09:34)
[2023-04-04] MEDS: Sodium Chloride 0.9% 1,000 ML IV SCH ×2 (00:26→12:42)
[2023-04-04] MEDS: HYDROcodone/Acetaminophen 7.5/325 mg Tablet PO PRN ×3 (03:08→18:08)
[2023-04-04] MEDS: metFORMIN XR 500 MG ER.TAB PO SCH ×2 (09:29→18:09)
[2023-04-04] MEDS: Multivit, Therapeutic 1 TAB PO SCH (09:29)
[2023-04-04] MEDS: dilTIAZem CD 180 MG CAP PO SCH (09:29)
[2023-04-04] MEDS: Empagliflozin 25 MG TAB PO SCH (09:29)
[2023-04-04] MEDS: Losartan 25 MG TAB PO SCH ×2 (09:29→20:30)
[2023-04-04] MEDS: Furosemide 40 MG TAB PO SCH (09:29)
[2023-04-04] MEDS: Gabapentin 300 MG CAP PO SCH ×2 (09:29→20:32)
[2023-04-04] MEDS: Sucralfate 1 GM TAB PO SCH ×2 (09:30→20:30)
[2023-04-04] MEDS: Ascorbic Acid 500 mg Chewable Tablet PO SCH (09:30)
[2023-04-04] MEDS: Milk Of Magnesia 30 ML UDCUP PO PRN (14:42)
[2023-04-05] MEDS: Sodium Chloride 0.9% 1,000 ML IV SCH ×2 (02:30→16:06)
[2023-04-05] MEDS: HYDROcodone/Acetaminophen 7.5/325 mg Tablet PO PRN ×3 (06:33→22:38)
[2023-04-05] MEDS: Gabapentin 300 MG CAP PO SCH ×2 (09:52→19:55)
[2023-04-05] MEDS: Sucralfate 1 GM TAB PO SCH ×2 (09:52→19:53)
[2023-04-05] MEDS: Ascorbic Acid 500 mg Chewable Tablet PO SCH (09:52)
[2023-04-05] MEDS: dilTIAZem CD 180 MG CAP PO SCH (09:52)
[2023-04-05] MEDS: metFORMIN XR 500 MG ER.TAB PO SCH ×2 (09:52→17:04)
[2023-04-05] MEDS: Multivit, Therapeutic 1 TAB PO SCH (09:53)
[2023-04-05] MEDS: Furosemide 40 MG TAB PO SCH (09:53)
[2023-04-05] MEDS: Empagliflozin 25 MG TAB PO SCH (09:53)
[2023-04-05] MEDS: Losartan 25 MG TAB PO SCH ×2 (09:53→19:56)
[2023-04-05] MEDS: Milk Of Magnesia 30 ML UDCUP PO PRN (21:13)
[2023-04-06] MEDS: Sodium Chloride 0.9% 1,000 ML IV SCH ×2 (03:51→17:28)
[2023-04-06] MEDS: dilTIAZem CD 180 MG CAP PO SCH (09:34)
[2023-04-06] MEDS: Ascorbic Acid 500 mg Chewable Tablet PO SCH (09:34)
[2023-04-06] MEDS: Furosemide 40 MG TAB PO SCH (09:34)
[2023-04-06] MEDS: Multivit, Therapeutic 1 TAB PO SCH (09:34)
[2023-04-06] MEDS: Gabapentin 300 MG CAP PO SCH ×2 (09:35→20:19)
[2023-04-06] MEDS: HYDROcodone/Acetaminophen 7.5/325 mg Tablet PO PRN ×3 (09:35→23:07)
[2023-04-06] MEDS: Empagliflozin 25 MG TAB PO SCH (09:36)
[2023-04-06] MEDS: Losartan 25 MG TAB PO SCH ×2 (09:36→20:19)
[2023-04-06] MEDS: metFORMIN XR 500 MG ER.TAB PO SCH ×2 (09:36→16:47)
[2023-04-06] MEDS: Sucralfate 1 GM TAB PO SCH ×2 (09:36→20:19)
[2023-04-07] MEDS: Sodium Chloride 0.9% 1,000 ML IV SCH ×2 (05:31→19:35)
[2023-04-07] MEDS: HYDROcodone/Acetaminophen 7.5/325 mg Tablet PO PRN ×3 (05:32→20:21)
[2023-04-07] MEDS: Multivit, Therapeutic 1 TAB PO SCH (09:16)
[2023-04-07] MEDS: Furosemide 40 MG TAB PO SCH (09:16)
[2023-04-07] MEDS: Losartan 25 MG TAB PO SCH ×2 (09:16→20:21)
[2023-04-07] MEDS: metFORMIN XR 500 MG ER.TAB PO SCH ×2 (09:17→17:30)
[2023-04-07] MEDS: Ascorbic Acid 500 mg Chewable Tablet PO SCH (09:17)
[2023-04-07] MEDS: dilTIAZem CD 180 MG CAP PO SCH (09:17)
[2023-04-07] MEDS: Sucralfate 1 GM TAB PO SCH ×2 (09:17→20:21)
[2023-04-07] MEDS: Empagliflozin 25 MG TAB PO SCH (09:17)
[2023-04-07] MEDS: Gabapentin 300 MG CAP PO SCH ×2 (09:19→20:21)
[2023-04-07] MEDS: Acetaminophen/Codeine 30-300mg Tablet PO PRN ×3 (09:24→23:55)
[2023-04-08] MEDS: HYDROcodone/Acetaminophen 7.5/325 mg Tablet PO PRN ×2 (06:05→16:01)
[2023-04-08] MEDS: Sodium Chloride 0.9% 1,000 ML IV SCH ×2 (08:29→20:10)
[2023-04-08] MEDS: Furosemide 40 MG TAB PO SCH (09:37)
[2023-04-08] MEDS: Losartan 25 MG TAB PO SCH ×2 (09:37→20:10)
[2023-04-08] MEDS: Sucralfate 1 GM TAB PO SCH ×2 (09:37→20:09)
[2023-04-08] MEDS: Multivit, Therapeutic 1 TAB PO SCH (09:37)
[2023-04-08] MEDS: Ascorbic Acid 500 mg Chewable Tablet PO SCH (09:37)
[2023-04-08] MEDS: Empagliflozin 25 MG TAB PO SCH (09:37)
[2023-04-08] MEDS: metFORMIN XR 500 MG ER.TAB PO SCH ×2 (09:37→16:01)
[2023-04-08] MEDS: dilTIAZem CD 180 MG CAP PO SCH (09:38)
[2023-04-08] MEDS: Gabapentin 300 MG CAP PO SCH ×2 (09:38→20:08)
[2023-04-08] MEDS: Acetaminophen/Codeine 30-300mg Tablet PO PRN (20:09)
[2023-04-09] MEDS: HYDROcodone/Acetaminophen 7.5/325 mg Tablet PO PRN ×2 (00:03→12:59)
[2023-04-09] MEDS: Acetaminophen/Codeine 30-300mg Tablet PO PRN ×2 (06:04→19:58)
[2023-04-09] MEDS: Ascorbic Acid 500 mg Chewable Tablet PO SCH (08:46)
[2023-04-09] MEDS: Gabapentin 300 MG CAP PO SCH ×2 (08:46→19:56)
[2023-04-09] MEDS: Furosemide 40 MG TAB PO SCH (08:47)
[2023-04-09] MEDS: Empagliflozin 25 MG TAB PO SCH (08:47)
[2023-04-09] MEDS: Multivit, Therapeutic 1 TAB PO SCH (08:47)
[2023-04-09] MEDS: dilTIAZem CD 180 MG CAP PO SCH (08:47)
[2023-04-09] MEDS: Sucralfate 1 GM TAB PO SCH ×2 (08:47→19:56)
[2023-04-09] MEDS: Losartan 25 MG TAB PO SCH ×2 (08:47→19:56)
[2023-04-09] MEDS: metFORMIN XR 500 MG ER.TAB PO SCH ×2 (08:48→18:42)
[2023-04-09] MEDS: Sodium Chloride 0.9% 1,000 ML IV SCH (19:59)
[2023-04-10] MEDS: Sodium Chloride 0.9% 1,000 ML IV SCH ×2 (00:36→17:06)
[2023-04-10] MEDS: Ascorbic Acid 500 mg Chewable Tablet PO SCH (09:38)
[2023-04-10] MEDS: Furosemide 40 MG TAB PO SCH (09:38)
[2023-04-10] MEDS: Empagliflozin 25 MG TAB PO SCH (09:38)
[2023-04-10] MEDS: HYDROcodone/Acetaminophen 7.5/325 mg Tablet PO PRN ×2 (09:38→18:43)
[2023-04-10] MEDS: Losartan 25 MG TAB PO SCH ×2 (09:39→20:32)
[2023-04-10] MEDS: Multivit, Therapeutic 1 TAB PO SCH (09:39)
[2023-04-10] MEDS: metFORMIN XR 500 MG ER.TAB PO SCH ×2 (09:39→18:43)
[2023-04-10] MEDS: Sucralfate 1 GM TAB PO SCH ×2 (09:39→20:32)
[2023-04-10] MEDS: dilTIAZem CD 180 MG CAP PO SCH (09:39)
[2023-04-10] MEDS: Gabapentin 300 MG CAP PO SCH ×2 (09:40→20:31)
[2023-04-10] MEDS: Acetaminophen/Codeine 30-300mg Tablet PO PRN (14:22)
[2023-04-11] MEDS: Sodium Chloride 0.9% 1,000 ML IV SCH (03:40)
[2023-04-11] MEDS: metFORMIN XR 500 MG ER.TAB PO SCH (07:44)
[2023-04-11] MEDS: Sucralfate 1 GM TAB PO SCH (07:44)
[2023-04-11] MEDS: Gabapentin 300 MG CAP PO SCH (07:45)
[2023-04-11] MEDS: Furosemide 40 MG TAB PO SCH (07:46)
[2023-04-11] MEDS: Losartan 25 MG TAB PO SCH (07:46)
[2023-04-11] MEDS: dilTIAZem CD 180 MG CAP PO SCH (07:46)
[2023-04-11] MEDS: Ascorbic Acid 500 mg Chewable Tablet PO SCH (07:46)
[2023-04-11] MEDS: Multivit, Therapeutic 1 TAB PO SCH (07:46)
[2023-04-11] MEDS: Empagliflozin 25 MG TAB PO SCH (07:46)
[2023-04-11] MEDS: Acetaminophen/Codeine 30-300mg Tablet PO PRN (07:48)
[2023-04-11] MEDS: HYDROcodone/Acetaminophen 7.5/325 mg Tablet PO PRN (14:53)
[2023-04-11 16:29] VITALS: BP 116/67; TEMP 98.3
== END 2023-04-11 18:25 | DRG 520 ==
LOC: SDC 07:18 → SURG A 14:05 → OBSVTOIN 04-01 14:53
PROVIDERS: ADMIT Surgery; ATTEND Surgery
PROC: 0ST20ZZ Resection of Lumbar Vertebral Disc, Open Approach (ICD-10-PCS; principal; 2023-04-01)
PROC: 01NB0ZZ Release Lumbar Nerve, Open Approach (ICD-10-PCS; 2023-04-01)
PROC: 01NR0ZZ Release Sacral Nerve, Open Approach (ICD-10-PCS; 2023-04-01)
PROC: 0ST40ZZ Resection of Lumbosacral Disc, Open Approach (ICD-10-PCS; 2023-04-01)
DX: M48.062 Spinal stenosis, lumbar region with neurogenic claudication (principal); M54.16 Radiculopathy, lumbar region; Z79.899 Other long term (current) drug therapy
CPT/HCPCS: 36415; 36416; 51702; 80048; 85025; 93970; 96374; 96376; G0378; J1100; J2370; J2405; J2704; J3010; J3370; J3490; J7050